=== PATIENT | male | born 1980 | race Caucasian/White ===

== ENCOUNTER 2017-05-06 22:00 | Emergency (ER) | payer OTHER ==
[~2017-05-06] VITALS: Ht 180.3 cm; Wt 75.1 kg
[~2017-05-06 22:00] MED LIST: MOBIC7.5 MG PO
[2017-05-07] VITALS: BP 135/99
== END 2017-05-07 00:01 | disposition home or self-care (01) ==
LOC: EME 22:00 → EXP 22:00 → EME 22:00 → EXP 05-07 00:01
DX: S00.83XA Contusion of other part of head, initial encounter (principal); S91.111A Laceration without foreign body of right great toe without damage to nail, initial encounter; S00.31XA Abrasion of nose, initial encounter; Y04.0XXA Assault by unarmed brawl or fight, initial encounter; E78.5 Hyperlipidemia, unspecified; F41.9 Anxiety disorder, unspecified
CPT/HCPCS: 70160; 99281; 99284